=== PATIENT | male | born 1990 | race American Indian/Alaskan Native ===

== ENCOUNTER 2021-02-19 14:08 | Outpatient (REF) | payer OTHER, SELFPAY ==
[2021-02-19 14:26] LABS: COVID-19 Test Negative (Negative)
== END 2021-02-19 14:09 | disposition home or self-care (01) ==
LOC: HO.LAB 14:08
PROVIDERS: Visit Provider Internal Medicine
DX: Z20.822 Contact with and (suspected) exposure to COVID-19 (principal)
CPT/HCPCS: 36415; 87635; C9803

== ENCOUNTER 2021-05-12 09:42 | Outpatient (REF) | payer OTHER, SELFPAY ==
[2021-05-12 10:47] LABS: MANUAL DIFF FLAG NO
[2021-05-12 10:54] LABS: Basophils Percent Auto 0.4 % (0-2); Eosinophils Absolute Auto 0.2 X10*3/uL (0.0-0.4); Eosinophils Percent Auto 2.4 % (0-4); Hematocrit 45.2 % (42-52); Hemoglobin 15.1 g/dl (14.0-18.0); Imm Gran Abs Auto 0.03 X10*3/uL (0.00-0.03); Imm Gran Pct Auto 0.4 % (0.0-0.4); Lymphocytes Absolute Auto 1.6 X10*3/uL (1.2-4.9); Lymphocytes Percent Auto 24.2 % (20-40); Mean Corpuscular HGB Conc 33.4 g/dl (31.0-36.0); Mean Corpuscular Hemoglobin 28.9 pg (27.0-33.0); Mean Corpuscular Volume 86.6 fL (80-98); Mean Platelet Volume 11.7 fL (9.4-12.4); Monocytes Absolute Auto 0.6 X10*3/uL (0.1-1.2); Monocytes Percent Auto 9.2 % (2-11); Neutrophils Absolute Auto 4.3 X10*3/uL (2.0-8.3); Neutrophils Percent Auto 63.4 % (45-73); Platelet Count 221 X10*3/uL (160-400); Red Blood Count 5.22 X10*6/uL (4.60-5.80); Red Cell Distribution Width 12.6 % (11.0-16.0); White Blood Count 6.7 X10*3/uL (4.8-10.8)
[2021-05-12 11:05] LABS: Glucose Urine UA NEG (NEG); Leukocyte Esterase Urine NEG (NEG); Nitrite Urine NEG (NEG); Urine Blood NEG (NEG); Urine Ketones NEG (NEG); Urine Protein NEG (NEG-TRACE)
[2021-05-12 11:13] LABS: Appearance Urine CLEAR; Color Urine COLORLESS
[2021-05-12 11:23] LABS: Alanine Aminotransferase 50 U/L (0-40); Albumin Level 4.4 g/dL (3.5-5.0); Alkaline Phosphatase 72 U/L (39-117); Anion Gap 12 (12-20); Aspartate Amino Transferase 35 U/L (5-37); Bilirubin Total 0.5 mg/dL (0.0-1.0); Blood Urea Nitrogen 12 mg/dL (9-16); Calcium 9.3 mg/dL (8.4-10.2); Carbon Dioxide 25 mmol/L (22-29); Chloride 108 mmol/L (96-108); Cholesterol 139 mg/dL; Estimated Glomerular Filt Rate > 60; Glucose Fasting 83 mg/dL (60-99); HDL Cholesterol 44 mg/dL; LDL Cholesterol Calculated 81 mg/dl; Magnesium 2.2 mg/dL (1.6-2.6); Potassium 4.2 mmol/L (3.3-5.1); Sodium 141 mmol/L (135-145); Triglycerides 72 mg/dL
[2021-05-12 11:44] LABS: Free T4 (Free Thyroxine) 0.86 ng/dL (0.71-1.85); Thyroid Stimulating Hormone 1.86 uIU/mL (0.32-4.0); Vitamin D 25-OH Total 15.6 ng/mL (>30)
== END 2021-05-12 09:43 | disposition home or self-care (01) ==
LOC: HO.LAB 09:42
PROVIDERS: PCP Internal Medicine; Visit Provider Internal Medicine
DX: Z00.00 Encounter for general adult medical examination without abnormal findings (principal); E55.9 Vitamin D deficiency, unspecified; E01.0 Iodine-deficiency related diffuse (endemic) goiter; E66.3 Overweight; R25.2 Cramp and spasm
CPT/HCPCS: 36415; 80053; 80061; 81003; 82306; 82550; 83735; 84439; 84443; 85025

== ENCOUNTER 2021-06-17 15:47 | Outpatient (REF) | payer OTHER, SELFPAY ==
--- NOTE | ~2021-06-17 | US_ITS ---
EXAMINATION: US THYROID CLINICAL INFORMATION: Iodine deficiency related diffuse (endemic) goiter COMPARISON: None TECHNIQUE: Linear transducer mcdermott-scale and color Doppler examination with attention to the region of the thyroid. FINDINGS: SIZE: Measurements of the thyroid lobes and nodules are given in sagittal, anteroposterior and transverse dimensions respectively. Right Thyroid Lobe: 4.9 x 1.3 x 1.7 cm, volume 5.7 mL. Parenchyma: The gland echotexture is homogeneous. Thyroid vascularity is normal. Left Thyroid Lobe: 4.6 x 0.9 x 1.7 cm, volume 3.7 mL. Parenchyma: The gland echotexture is homogeneous. Thyroid vascularity is normal. Isthmus: 0.3 cm in maximum AP dimension. No focal thyroid nodule is seen. NODES: There is a 0.8 x 0.8 x 0.5 cm complex cystic lesion posterior to the mid right lobe. This has a thick wall isoechoic to thyroid tissue and cystic center. This is avascular. It is uncertain whether this represents an exophytic thyroid nodule, parathyroid adenoma and atypical lymph node. US/US thyroid IMPRESSION: 0.8 x 0.8 x 0.5 cm complex cystic lesion posterior to the mid right lobe. Differential would include an exophytic thyroid nodule, parathyroid adenoma and atypical lymph node. ACR TI-RADS RECOMMENDATION REFERENCE: Ultrasound-guided fine-needle aspiration, followup ultrasound, no further follow up. * TR1 (0 point) and TR 2 (2 points): No FNA or follow up * TR3 (3 points): FNA if more than or equal to 2.5 cm in maximum dimension, followup ultrasound in 1, 3 and 5 years if 1.5 to 2.4 cm in maximum dimension. * TR4 (4-6 points): FNA if more than or equal to 1.5 cm in maximum dimension, followup ultrasound in 1, 2, 3 and 5 years if 1 to 1.4 cm in maximum dimension. * TR5 (more than or equal to 7 points): FNA if more than or equal to 1 cm in maximum dimension, followup ultrasound every year for 5 years if 0.5 to 0.9 cm in maximum dimension. * TR3, TR4 or TR5 nodules that are below the size threshold for follow up receive no follow up.
== END 2021-06-17 15:48 | disposition home or self-care (01) ==
LOC: HO.US 15:47
PROVIDERS: Visit Provider Internal Medicine
DX: E01.0 Iodine-deficiency related diffuse (endemic) goiter (principal)
CPT/HCPCS: 76536

== ENCOUNTER 2022-08-18 15:57 | Outpatient (AMB) | payer OTHER, SELFPAY ==
--- NOTE | 2022-08-18 16:03 | A.OFFPC_ITS ---
Vital Signs 08/18/22 16:04 Height 5 ft 11 in Weight 223 lb BMI 31.1 BP 136/82 Blood Pressure Location Lt brachial Position Sitting Temp 96.6 F L Temp Source Skin Intake Visit Reasons: physical Intake Note: Patient here for a physical exam Stock Patcher Required: No Accompanied by: Self / Same As Patient Allergies No Known Allergies (No Known Allergies*) Allergy (Verified 10/06/24 08:44) Medication List - Last Reconciled 08/18/22 by Deejay Trevino MD No Known Home Meds Tobacco use date assessed: 08/18/22 HPI physical HPI Details Patient comes in today for his annual physical examination [facility] Medical History Obesity (BMI 30-39.9) Elevated LFTs Smoker Vitamin D deficiency Thyroid cyst Overweight (BMI 25.0-29.9) Surgical History No history of previous surgery Family History Mother Cancer Diabetes Leukemia Father No problems noted. 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 1. Little interest or pleasure in doing things: not at all 2. Feeling down, depressed, or hopeless: not at all 3. Trouble falling or staying asleep, or sleeping too much: not at all 4. Feeling tired or having little energy: not at all 5. Poor appetite or overeating: not at all 6. Feeling bad about yourself - or that you are a failure or have let yourself or your family down: not at all 7. Trouble concentrating on things, such as reading the newspaper or watching television: not at all 8. Moving or speaking so slowly that other people could have noticed. Or the opposite - being so fidgety or restless that you have been moving around a lot more than usual: not at all 9. Thoughts that you would be better off or of hurting yourself in some way: not at all Total score: 0 Depression Screening Interpretation: Negative Source: Developed by Drs. Silvestre Cabral, Nat Crump, Eliezer Zuniga and colleagues, with an educational augustine from [employer]. Thrive Questionnaire Declines Thrive assessment: No Date Thrive assessed: 08/18/22 I am a: Patient What is your living situation today?: I have a steady place to live Within the past 12 months, did the food you bought not last and you didn't have the money to get more?: Never true Within the past 12 months, did you worry whether your food would run out before you got money to buy more?: Never true Do you have trouble paying for medicines?: No Do you have trouble getting transportation to medical appointments?: No Do you have trouble paying your heating and electricity bill?: No Do you have trouble taking care of your child, family member or friend?: No Do you have trouble with day-to-day activities such as bathing, preparing meals, shopping, managing finances, etc.?: No Are you currently unemployed and looking for a job?: No Are you interested in more education?: No Currently or been in a relationship where the following occur: no concerns reported AUDIT C Alcohol Use Questionnaire (AUDIT-C) 1. How often do you have a drink containing alcohol?: Never Total Score: 0 AARON-7 AMB Questionnaire AARON-7 Date AARON - 7 assessed: 08/18/22 Feeling nervous, anxious, or on edge: 0 = Not at all Not being able to stop or control worryin = Not at all Worrying too much about different things: 0 = Not at all Trouble relaxin = Not at all Being so restless that it is hard to sit still: 0 = Not at all Becoming easily annoyed or irritable: 0 = Not at all Feeling afraid as if something awful might happen: 0 = Not at all Total AARON-7 score (0-4 normal; 5-9 mild; 10-14 moderate; 15-21 severe): 0 Source: Developed by Drs. Silvestre Cabral, Nat Crump, Eliezer Zuniga and colleagues, with an educational augustine from [employer]. Physical exam (Primary Care) Vital Signs: Last Vital Signs Temp 96.6 F L 08/18/22 16:04 BP 136/82 08/18/22 16:04 BMI result Body Mass Index 31.1 Tobacco/Smoking Status: Tobacco use Status Tobacco use date assessed 08/18/22 08/18/22 16:09 Patient Tobacco Use Status Current everyday Tobacco 08/18/22 16:09 Tobacco use type Cigarette 08/18/22 16:09 e-Cigarette/Vaping Use Never Used 08/18/22 16:09 PHQ-9: PHQ-9 Score PHQ-9: Total score 0 08/18/22 23:08 Depression Screening Interpretation: Negative Thrive Assessment: Date of Thrive Assessment Date Thrive assessed 08/18/22 08/18/22 16:09 Currently or been in a relationship where the following occur: no concerns reported Office Procedures Flu Questionnaire Does the patient have a severe egg allergy?: No Does the patient have severe life threatening allergies?: No Does the patient have a fever or illness today?: No Has the patient ever had Guillain-Hockley Syndrome?: No Has the patient ever had any past reaction to a flu shot?: No Immunizations flu vacc [id number] 6mos up(PF) 60 mcg(15 mcgx4)/0.5 mL IM syringe Performing Provider: Deejay Trevino MD Per[facility] [place] [facility] Administered by: PEEWEE Meyer on 08/18/22 16:48 Dose Route Admin Location Dispensed Lot Number Expiration Date NDC Food Service Tray Attendant 0.5 mL IM Right Deltoid 0.5 mL [id number] 03/19/23 [id number] [employer] Total Dispensed Waste 0.5 mL 0 % VIS Given Date VIS Provided VIS Publication Date 08/18/22 Single Vaccine 21 Eligibility Eligibility Date Funding Source Not [facility] Eligible 08/18/22 Private Coding Level of Care Code Admin Sign Off/No Billing Diagnoses Annual physical exam Z00.00 Thyroid cyst E04.1 Vitamin D deficiency E55.9 Elevated LFTs R79.89 Smoker F17.200 Obesity (BMI 30-39.9) E66.9 Additional Codes PHQ-9 - 68588 - PHQ-9 Billing: ([id number])
[2022-08-18 16:04] VITALS: BP 136/82; TEMP 35.9; BMI 31.1
== END 2022-08-18 16:51 | disposition home or self-care (01) ==
LOC: HO.HMGH 15:57
PROVIDERS: PCP Nurse Practitioner Family; Visit Provider Internal Medicine
DX: Z00.00 Encounter for general adult medical examination without abnormal findings (principal); E04.1 Nontoxic single thyroid nodule; E55.9 Vitamin D deficiency, unspecified; R79.89 Other specified abnormal findings of blood chemistry; F17.200 Nicotine dependence, unspecified, uncomplicated; E66.9 Obesity, unspecified
CPT/HCPCS: 99499

== ENCOUNTER 2023-11-23 12:48 | Emergency (ER) | payer OTHER, SELFPAY ==
--- NOTE | ~2023-11-23 | XR_ITS ---
EXAMINATION: XR CHEST CLINICAL INFORMATION: Shortness of breath COMPARISON: None available. TECHNIQUE: 2 views of the chest were obtained. FINDINGS: No significant abnormality is noted involving the heart, lungs, mediastinum, bony thorax or soft tissues. XR/XR chest 2V IMPRESSION: Unremarkable examination.
[2023-11-23 12:52] VITALS: BP 144/100; PULSE 74; RESP 16; TEMP 37.1; O2SAT 99; BMI 30.7
--- NOTE | 2023-11-23 12:52 | ED_ITS ---
HPI - General Adult General Chief complaint: Upper Respiratory Symptoms Stated complaint: Flu Symptoms Time Seen by Provider: 11/23/23 13:33 Source: patient Mode of arrival: ambulatory Limitations: no limitations History of Present Illness HPI narrative: Patient is a 33-year-old male presenting to the emergency department with complaint of nausea, occasional vomiting, nasal congestion and headache since testing positive for COVID on 11/11. Patient reports that his symptoms have been constant and have not improved or worsened since onset. He reports at times he feels warm but has not checked his temperature with a thermometer. States he has been able to tolerate p.o. food and fluids. He denies any abdominal pain, diarrhea, constipation. Denies any dysuria, frequency, hematuria or other urinary symptoms. Denies back or flank pain. Reports headaches are moderate and intermittent. Denies worst headache of life. Denies headache worse in the morning or worse with standing. complaint: Headache, nausea Onset (ago): week(s) Related Data Previous Rx's Medication Instructions Recorded cholecalciferol (vitamin D3) 50 50 mcg PO DAILY 90 days #90 caps 08/18/22 mcg (2,000 unit) capsule Allergies Allergy/AdvReac Type Severity Reaction Status Date / Time No Known Allergies Allergy Verified 08/18/22 16:33 [No Known Allergies*] Review of Systems Review of Systems: As per HPI. Yes all other systems are reviewed and are negative Constitutional: Constitutional: Reports as per HPI [facility] Past Medical History Medical History (Updated 11/23/23 @ 14:29 by Maritza Carreno NP) Obesity (BMI 30-39.9) Elevated LFTs Smoker Vitamin D deficiency Thyroid cyst Overweight (BMI 25.0-29.9) Surgical History No history of previous surgery Family History Family History Mother Cancer Diabetes Leukemia Father No problems noted. 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 Blood pressure elevated. Heart rate normal. Respiratory rate normal. Temperature normal. Oxygen saturation normal. Const General: cooperative, healthy appearing and no acute distress Orientation/consciousness: oriented to person, oriented to place, oriented to time and patient oriented x3 Limitations: no limitations HENMT Head: Yes normocephalic and Yes atraumatic Ears: external ears normal, TM's normal bilaterally and EAC's normal General nose exam: Normal external nose present and Normal nasal mucous membranes and turbinates present Face and sinus: Yes normal facial exam, Yes sinuses nontender and Yes face symmetric Mouth: oropharynx normal and moist mucous membranes Throat: Yes tonsils normal, Yes uvula midline and No uvular edema Eyes Pupils: Equal, round and reactive pupils present Neck Neck: Yes normal visual inspection and Yes supple Lymphatic: no lymphadenopathy noted Resp Effort & Inspection: normal respiratory effort and able to speak in complete sentences Auscultation: clear to auscultation bilaterally Cardio Rate: regular rate Rhythm: regular rhythm Heart sounds: S1 normal heart sound present and S2 normal heart sound present GI Palpation (GI): Soft to palpation and nontender Auscultation: normoactive bowel sounds General: Yes no CVA tenderness Back/Spine/Pelvis Back: no CVA tenderness Skin General skin exam: elasticity normal and turgor normal Neuro General: oriented to person, oriented to place, oriented to time, patient oriented x3, moves all extremities, no focal motor deficits and CN's II-XI intact bilaterally Cranial nerves: Yes Equal, round and reactive pupils present Cognition (Neuro): normal cognition Extrem General: Yes full ROM, Yes no pedal edema and Yes no calf tenderness Psych Mental Status: mental status grossly normal Affect: normal affect Thought process: Normal thought process present Course Course Course Narrative: RME- 33 year old male presents for evaluation of flu-like symptoms. He tested positive for COVID on 11/12/23 and his symptoms have not improved. Plan for re peat viral swabs and chest x-ray Medical Decision Making Medical Decision Making [facility] Narrative: Patient is a 33-year-old male presenting to the emergency department with complaint of nausea, occasional vomiting, nasal congestion and headache since testing positive for COVID on 11/11. On exam patient is awake, A+Ox3, VS WNL, afebrile, normal neurological exam without focal deficits, physical exam findings as above. Given reported symptoms and physical exam findings, initial differential includes ongoing Covid symptoms, viral illness, flu, rsv, bronchitis, pneumonia. X-ray notable for no evidence of pneumonia. My interpretation is in agreement with the radiologist's interpretation. Viral swab negative for flu/COVID/RSV. Discussed with patient that symptoms are likely related to ongoing COVID infection, and may take several weeks to fully resolve. Advised him to alternate Tylenol and ibuprofen as needed, try eating small meals frequently throughout the day instead of larger meals less frequently. Advised patient to follow-up with primary care provider. Return precautions discussed at bedside. Patient verbalized understanding of and agreement with plan. Differential Diagnosis Differential Diagnoses: The differential diagnosis associated with the presentation includes As per [facility]. Lab Data [facility] Lab Attestation statement: I reviewed the patient's lab results. As per [facility]. Labs: Lab Results 11/23/23 Range/Units 13:11 Influenza Type A (PCR) NEGATIVE (Negative) Influenza Type B (PCR) NEGATIVE (Negative) RSV RNA Qual (PCR) NEGATIVE (Negative) SARS-CoV-2 RNA (RT-PCR) NEGATIVE (Negative) Independent Interpretation I performed an independent interpretation of an: Plain X-Ray Interpretation: No evidence of pneumonia on chest x-ray Radiology Impression Discussion of test interpretation with radiology: I have reviewed the radiologist's reading. Radiologist Impression: XR/XR chest 2V IMPRESSION: Unremarkable examination. External Record Review External record reviewed: Inpatient record, Office record and Outpatient record Discharge Plan Discharge Clinical Impression: Viral infection Patient Disposition: Home, Self-Care Instructions: Viral Syndrome (ED) Additional Instructions: You were evaluated in the emergency department today for headaches, nausea. Y our x-ray did not show evidence of pneumonia. Your Covid, flu and RSV tests were negative. We recommend that you take 600 mg ibuprofen or 650 mg Tylenol every 6 hours as needed for pain or fever. We recommend eating more frequent small meals throughout the day instead of larger meals less frequently. Return to the emergency department with worsening shortness of breath, chest pain, fever that does not improve with Tylenol or ibuprofen, persistent vomiting, or any other concerning symptoms. You should follow-up with your primary care provider. Prescriptions: No Action cholecalciferol (vitamin D3) 50 mcg (2,000 unit) capsule 50 mcg PO DAILY 90 Days Qty: 90 3RF
[2023-11-23 14:10] LABS: Influenza A PCR NEGATIVE (Negative); Influenza B PCR NEGATIVE (Negative); Resp Syncy Virus RNA Qual PCR NEGATIVE (Negative); SARS COV2 PCR INHOUSE NEGATIVE (Negative)
== END 2023-11-23 15:18 | disposition home or self-care (01) ==
PROVIDERS: Physician Assistant; Emergency Provider Student in an Organized Health Care Education/Training Program; PCP Internal Medicine
DX: B34.9 Viral infection, unspecified (principal); R11.2 Nausea with vomiting, unspecified; R09.81 Nasal congestion; R51.9 Headache, unspecified; Z11.52 Encounter for screening for COVID-19; Z20.828 Contact with and (suspected) exposure to other viral communicable diseases
CPT/HCPCS: 0241U; 71046; 99282; 99283

== ENCOUNTER 2024-02-02 09:05 | Outpatient (REF) | payer OTHER, SELFPAY ==
[2024-02-02 09:17] LABS: MANUAL DIFF FLAG NO
[2024-02-02 09:59] LABS: Basophils Absolute Auto 0.1 X10*3/uL (0.0-0.2); Basophils Percent Auto 0.4 % (0-2); Eosinophils Absolute Auto 0.1 X10*3/uL (0.0-0.4); Eosinophils Percent Auto 0.7 % (0-4); Hematocrit 51.1 % (42.0-52.0); Hemoglobin 17.2 g/dl (14.0-18.0); Imm Gran Abs Auto 0.02 X10*3/uL (0.00-0.03); Imm Gran Pct Auto 0.2 % (0.0-0.4); Lymphocytes Absolute Auto 1.7 X10*3/uL (1.2-4.9); Lymphocytes Percent Auto 15.6 % (20-40); Mean Corpuscular HGB Conc 33.7 g/dl (31.0-36.0); Mean Corpuscular Hemoglobin 29.1 pg (27.0-33.0); Mean Corpuscular Volume 86.3 fL (80.0-98.0); Mean Platelet Volume 11.5 fL (9.4-12.4); Monocytes Absolute Auto 0.7 X10*3/uL (0.1-1.2); Neutrophils Absolute Auto 8.6 x10*3/uL (2.0-8.3); Neutrophils Percent Auto 77.1 % (45-73); Platelet Count 264 X10*3/uL (160-400); Red Blood Count 5.92 X10*6/uL (4.60-5.80); Red Cell Distribution Width 12.7 % (11.0-16.0); White Blood Count 11.2 X10*3/uL (4.8-10.8)
[2024-02-02 10:30] LABS: Alanine Aminotransferase 34 U/L (0-40); Albumin Level 4.8 g/dL (3.5-5.0); Alkaline Phosphatase 68 U/L (39-117); Anion Gap 14 (12-20); Aspartate Amino Transferase 21 U/L (5-37); Bilirubin Total 0.7 mg/dL (0.0-1.0); Blood Urea Nitrogen 14 mg/dL (9-16); Calcium 9.8 mg/dL (8.4-10.2); Carbon Dioxide 28 mmol/L (22-29); Chloride 104 mmol/L (96-108); Cholesterol 214 mg/dL (<200); Estimated Glomerular Filt Rate > 60; Glucose Fasting 94 mg/dL (60-99); HDL Cholesterol 42 mg/dL (>40); LDL Cholesterol Calculated 136 mg/dL (<100); Potassium 3.9 mmol/L (3.3-5.1); Sodium 142 mmol/L (135-145); Total Protein 8.1 g/dL (6.5-8.0); Triglycerides 183 mg/dL (<150)
[2024-02-02 10:39] LABS: TSH reflex Free T4 1.17 uIU/mL (0.32-4.0); Vitamin D 25-OH Total 17.8 ng/mL (>30)
[2024-02-02 10:40] LABS: Appearance Urine Clear; Color Urine Yellow; Glucose Urine UA Negative (Negative); Leukocyte Esterase Urine Negative (Negative); Nitrite Urine Negative (Negative); PH 6.5 (5.0-9.0); Specific Gravity - Urine 1.015 (1.005-1.025); Urine Blood Negative (Negative); Urine Ketones Negative (Negative); Urine Protein Negative (Neg-Trace)
== END 2024-02-02 09:06 | disposition home or self-care (01) ==
LOC: HO.LAB 09:05
PROVIDERS: PCP Internal Medicine; Visit Provider Internal Medicine
DX: Z00.00 Encounter for general adult medical examination without abnormal findings (principal); E78.00 Pure hypercholesterolemia, unspecified; R30.0 Dysuria; E55.9 Vitamin D deficiency, unspecified; D64.9 Anemia, unspecified
CPT/HCPCS: 36415; 80053; 80061; 81003; 82306; 84443; 85025

== ENCOUNTER 2024-02-15 15:41 | Outpatient (REF) | payer OTHER, SELFPAY ==
--- NOTE | ~2024-02-15 | US_ITS ---
EXAMINATION: US THYROID CLINICAL INFORMATION: Nontoxic single thyroid nodule. COMPARISON: Thyroid ultrasound 06/17/2021. TECHNIQUE: Linear transducer mcdermott-scale and color Doppler examination with attention to the region of the thyroid. FINDINGS: SIZE: Measurements of the thyroid lobes and nodules are given in sagittal, anteroposterior and transverse dimensions respectively. Right Thyroid Lobe: 4.8 x 1.5 x 1.9 cm, volume 7.2 mL. Previously 4.9 x 1.3 x 1.7 cm, volume 5.7 mL. Parenchyma: The gland echotexture is homogeneous. Thyroid vascularity is increased. Left Thyroid Lobe: 4.7 x 0.9 x 2.0 cm, volume 4.4 mL. Previously 4.6 x 0.9 x 1.7 cm, volume 3.7 mL. Parenchyma: The gland echotexture is homogeneous. Thyroid vascularity is increased. Isthmus: 0.3 cm in maximum AP dimension. Previously 0.3 cm. No focal thyroid nodule is seen. NODES: There is a 0.8 x 0.5 x 0.5 cm hypoechoic solid nodule along the posterior aspect of the mid right thyroid lobe. Differential considerations include an atypical lymph node, parathyroid adenoma or exophytic thyroid nodule. Previous exam demonstrated a 0.8 x 0.5 x 0.8 cm complex cystic lesion posterior to the mid right thyroid lobe. US/US thyroid IMPRESSION: 0.8 x 0.5 x 0.5 cm hypoechoic solid nodule along the posterior aspect of the mid right thyroid lobe. Differential considerations include an atypical lymph node, parathyroid adenoma or exophytic thyroid nodule. Previous exam demonstrated a 0.8 x 0.5 x 0.8 cm complex cystic lesion posterior to the mid right thyroid lobe. ACR TI-RADS RECOMMENDATION REFERENCE: Ultrasound-guided fine-needle aspiration, follow up ultrasound, no further followup. * TR1 (0 point) and TR2 (2 points): No FNA or followup * TR3 (3 points): FNA if more than or equal to 2.5 cm in maximum dimension, follow up ultrasound in 1, 3 and 5 years if 1.5 to 2.4 cm in maximum dimension. * TR4 (4-6 points): FNA if more than or equal to 1.5 cm in maximum dimension, follow up ultrasound in 1, 2, 3 and 5 years if 1 to 1.4 cm in maximum dimension. * TR5 (more than or equal to 7 points): FNA if more than or equal to 1 cm in maximum dimension, follow up ultrasound every year for 5 years if 0.5 to 0.9 cm in maximum dimension. * TR3, TR4 or TR5 nodules that are below the size threshold for follow up receive no followup.
== END 2024-02-15 15:42 | disposition home or self-care (01) ==
LOC: HO.US 15:41
PROVIDERS: PCP Internal Medicine; Visit Provider Internal Medicine
DX: E04.1 Nontoxic single thyroid nodule (principal)
CPT/HCPCS: 76536

== ENCOUNTER 2024-10-06 08:33 | Outpatient (AMB) | payer OTHER, SELFPAY ==
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
[2024-10-06 08:44] VITALS: BP 132/80; PULSE 64; TEMP 36.3; O2SAT 100; BMI 30.6
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
--- OUTSIDE RECORDS SUMMARY | 2024-10-06 08:51 | XMS_ITS ---
Author Organization [facility], Address [address] [place] [address] Care Team Providers Care Career Orientation Teacher Name Role Phone Kush Frias Unavailable [phone] ALLERGIES, ADVERSE REACTIONS, ALERTS None MEDICATIONS Medication Code Code System Start Date Stop Date Route Dosage Directions Fill Instructions azithromycin 720531 RxNorm 024 oral benzonatate 059073 RxNorm 024 oral 1 albuterol sulfate 3870655 RxNorm 024 inhalation 2 PROBLEMS Problem Name Code Code System Start Date End Date Stat Acute bronchitis, unspecified 76805690 [facility] 08/01/2024 Active ENCOUNTERS Encounter Diagnosis Code Code System Date Stat Acute bronchitis, unspecified 10861176 [facility] 2023 Active IMMUNIZATIONS * None VITAL SIGNS Code Code System Vitals Name Date Value and Un its 8462-4 [facility] Blood Pressure-Diastolic 08/01/2024 90 mmHg 8480-6 [facility] Blood Pressure-Systolic 08/01/2024 1 57 mmHg 8867-4 [facility] Heart Rate 08/01/2024 82 /min 9279-1 [facility] Respiratory Rate 08/01/2024 18 /min 8310-5 [facility] Body Temperature 08/01/2024 98.2 F 44544-1 [facility] Oxygen Saturation 08/01/2024 96 % SOCIAL HISTORY * None PROCEDURES * None MEDICAL EQUIPMENT * Patient has no history of implantable devices ASSESSMENT * None TREATMENT PLAN Type Description Date MEDICATION Take 90 mcg/actuation HFA Aeroso l Inhaler 08/01/2024 MEDICATION Take 250 mg tablet 08/01/2024 MEDICATION Take 100 mg capsule 08/01/2024 ORDERS Begin medication as directed. ibuprofen and tylenol for pain aches or fever. consider a decongestant such as mucinex or sudafed. return to ED or UC if needed for new or worsening symptoms 08/01/2024 APPOINTMENT If not feeling nina r in 3 day(s), please see your primary care physician. If you do not have a primary care physician, please return to this clinic. 08/01/2024 Lab Tests None GOALS * None HEALTH CONCERNS * No Health Concerns FUNCTIONAL AND COGNITIVE STATUS * None CONSULTATION NOTES * None DISCHARGE SUMMARY NOTES * None HISTORY AND PHYSICAL NOTES * None IMAGING NOTES * None LABORATORY REPORT NARRATIVE NOTES * None PATHOLOGY REPORT NARRATIVE NOTES * None PROGRESS NOTES * None
== END 2024-10-06 10:21 | disposition home or self-care (01) ==
PROVIDERS: PCP Internal Medicine; Visit Provider Nurse Practitioner Family
DX: M54.2 Cervicalgia (principal); M54.50 Low back pain, unspecified; V89.2XXA Person injured in unspecified motor-vehicle accident, traffic, initial encounter; Z04.3 Encounter for examination and observation following other accident

== ENCOUNTER → 2024-10-06 08:33 | Outpatient (BNVA) | payer OTHER, SELFPAY | PROVIDERS: PCP Internal Medicine; Visit Provider Nurse Practitioner Family ==